=== PATIENT | female | born 1990 | race Caucasian/White ===

== ENCOUNTER 2018-05-29 15:09 | Day surgery (SDC) | payer OTHER, SELFPAY ==
[2018-05-18 15:12] VITALS: BMI 24.5
[2018-05-29] VITALS (7 sets, daily range): BP systolic 85–108; BP diastolic 45–73; PULSE 60–82; RESP 11–15; TEMP 36.1–36.2; O2SAT 100; BMI 23.8
--- NOTE | 2018-05-29 | PATH_ITS ---
[facility] Accession Number: [id number] . 01 Material submitted: . PART A: ENDOCERVICAL CURETTINGS PART B: ENDOMETRIAL CURETTINGS . 02 Diagnosis: A. Endocervical Curettings: Strips of endocervical glandular epithelium; negative for glandular dysplasia and malignancy. Portions of lower uterine segment with features of polyp; negative for glandular hyperplasia, cytologic atypia, and malignancy. . B. Endometrial Curettings: Portions of proliferative endometrium; negative for glandular hyperplasia, cytologic atypia, and malignancy. [facility]/05/31/2018 . 02 Electronically signed: . Irma Guillen MD, Pathologist NPI- [id number] . 01 Gross description: . Part A: ENDOCERVICAL CURETTINGS: Received in formalin are minute fragments of mucoid and hemorrhagic material measuring 2.5 x 0.3 x 0.1 cm in aggregate. Submitted in toto in 1 cassette. Part B: ENDOMETRIAL CURETTINGS: Received in formalin are minute fragments of mucoid and hemorrhagic material measuring 2.5 x 1.5 x 0.3 cm in aggregate. Submitted in toto in 1 cassette. /CKI /CKI . 02 Pathologist provided ICD-10: N85.00 . 02 CPT . 428508, [id number] Performed at: 01 [facility] [address], [place], [place] [id number] MD Ben Hicks MD Phone: [phone] Performed at: 02 [facility] [place] [address] [place], [place] [id number] MD Zander Umanzor MD Phone: [phone]
[2018-05-29] MEDS: LACTATED RINGERS 1,000 ML 42 ML IV (16:07)
[2018-05-29] MEDS: FAMOTIDINE 20 MG/50 ML PIGGYBACK 200 MG IV (16:11)
[2018-05-29] MEDS: METOCLOPRAMIDE 10 MG/2 ML INJ IV (16:12)
--- NOTE | 2018-05-29 17:00 | PM.PREOP ---
Pre-operative Note Interval Note Pre-op Check: Yes History & Physical Reviewed by Physician Changes: No
--- NOTE | 2018-05-29 17:54 | PM.OP.1 ---
Operative Date/Time/Diagnoses Date of procedure: 05/29/18 Time of procedure: 17:15 Pre-op diagnosis: Abnormal uterine bleeding Post-op diagnosis: same (Normal-appearing endometrium/endocervix) Procedure & Clinicians Procedure: Removal intrauterine device, hysteroscopy, fractional dilatation and curettage Same procedure as scheduled: Yes Indications: The patient is a 27-year-old 1, para 1 female here for evaluation and management of abnormal uterine bleeding. She has had irregular vaginal bleeding since insertion of a ParaGard intrauterine device at her visit on 16 January 2018. She has had a few episodes of cramping and very heavy bleeding. Her most recent episode lasted 2 weeks and ended approximately mid May. Workup noted an appropriately placed intrauterine device but a possible 5-7 mm endocervical polyp. Attempt was made to remove the polyp in clinic, but it could not be visualized. It was recommended that she undergo a hysteroscopy with dilation curettage for removal of a possible endometrial versus ordered endocervical polyp. We discussed the pros and cons of continuing the ParaGard intrauterine device versus a progestin intrauterine device versus no intrauterine device replaced. On the day of surgery, the patient decided to defer any form of intracavitary control at this time. The risks, benefits, limitations, alternatives, and expectations of surgery were discussed, and the consent was reviewed and signed prior to surgery. Surgeon: Lisa Marshall Click Yes if Unassisted: Yes Anesthesia Type: General and Local (0.25% marcaine with epi) Operative Notes Findings: Exam under anesthesia: The uterus was anteverted and measured approximately 6 weeks in size. There were no adnexal masses palpable. Operative findings: The cervix was noted to have an atypical appearance at the external os, suggesting a possible posterior cervical laceration during delivery. IUD strings were visualized, and the IUD was grasped and removed easily. It appeared intact and normal. Examination of the endometrial cavity noted the tubal ostia were visualized bilaterally. There was a possible polypoid area of tissue at the posterior uterus, at the level of the internal cervix. This was removed with the dilation and curettage. Repeat visualization of the endometrial cavity after the Dilation and Curettage noted a normal appearing cavity. Closure Type: not applicable Specimen(s): other (Endocervical curettings, Endometrial curettings) Implants & Drains: None Estimated Blood Loss (mL): 5 Blood products transfused: none Procedure in detail: The patient was taken to the operating room where general anesthesia with LMA was administered without difficulty. She was then placed in the high dorsal lithotomy position with her lower extremities in Yellofin stirrups. Exam under anesthesia was then performed with the findings as noted above. Perineum and vagina were then prepped and draped in a sterile fashion, and in-and-out catheterization was performed. Procedure Time-Out was performed. A sterile bivalve speculum was then placed. The anterior lip of the cervix was then grasped with a single-toothed tenaculum. Local anesthetic using 0.25% Marcaine with epinephrine was then injected at the 12:00, 2:00, 4:00, 7:00, and 10:00 positions for a paracervical block. The 12 degree diagnostic hysteroscope was then easily avanced into the uterine cavity without need for cervical dilation. Using sterile saline for distention, the uterine cavity was visualized with the findings as noted above. Endocervical curettage was performed followed by endometrial curettage on all 4 wallace of the uterus. A small amount of tissue was obtained and sent for pathology. The tenaculum was then removed, and the tenaculum sites hemostatic with gentle pressure with a sponge stick and silver nitrate. At this point, the procedure was deemed complete. Sponge, lap, and needle count were correct x3. There were no complications. The patient was then taken to the recovery room in stable condition. Complications: none Condition: stable Disposition: PACU Plan for aftercare: PACU then home
--- NOTE | 2018-05-29 18:02 | SUR.OPER ---
Lithotomy on padded OR bed, head on pillow, arms secured on padded arm boards at <90 degrees abduction. Legs secured in padded yellow fins stirrups.
--- NOTE | 2018-05-29 18:22 | SUR.PHASEI ---
BENNY PAD OBSERVED TO BE C/D/I.
== END 2018-05-29 18:45 ==
LOC: OR 15:14
PROVIDERS: PCP Family Medicine; Visit Provider Obstetrics & Gynecology
PROC: 0UDB8ZZ Extraction of Endometrium, Via Natural or Artificial Opening Endoscopic (ICD-10-PCS; CPT 58558; principal; 2018-05-29 16:15)
PROC: (CPT 58558; 2018-05-29 16:15)
DX: N85.00 Endometrial hyperplasia, unspecified (principal); Z30.432 Encounter for removal of intrauterine contraceptive device
CPT/HCPCS: 58558; 88305; J1100; J2250; J2405; J2704; J2765; J3010

== ENCOUNTER → 2018-09-08 11:59 | Outpatient (CLI) | payer OTHER, SELFPAY | PROVIDERS: PCP Family Medicine; Visit Provider Family Medicine | DX: R06.02 Shortness of breath (principal) | CPT/HCPCS: 94070; 95070 ==